=== PATIENT | male | born 1980 | race Caucasian/White ===

== ENCOUNTER 2017-06-12 04:14 | Emergency (ER) | payer OTHER ==
[~2017-06-12] VITALS: Ht 185.4 cm; Wt 134.2 kg
[~2017-06-12 04:14] MED LIST: AFRIN,GENASAL D15 ML BOTH NARES; AMOXICILLIN500 M1 PO; ASPIR-LOW81 MG PO; AUGMENTIN875 MG PO; CLINDAMYCIN HC150 MG PO; ENDOCET 5-3251 EACH PO; FIORICET,ESG1 TABLET PO; FLEXERIL10 MG PO; LEVAQUIN500 MG PO; LEVAQUIN750 MG PO; MEDROL DOSEPAK4 MG PO; METHADONE 22 MG/1 ML PO; MOTRIN800 MG PO; NAPROXEN500 MG PO; NEURONTIN100 MG PO; NOHOMEMEDS; PERCOCET 5/31 TABLET PO; PROAIR HFA8.5 GM IH; ULTRAM50 MG PO
[2017-06-12] MEDS ORDERED: TRAMADOL HCL50 MG PO (05:38)
[2017-06-12 05:43] VITALS: BP 157/108
== END 2017-06-12 05:44 | disposition home or self-care (01) ==
LOC: EME 04:14
DX: K08.89 Other specified disorders of teeth and supporting structures (principal); F17.200 Nicotine dependence, unspecified, uncomplicated
CPT/HCPCS: 99281; 99284